=== PATIENT | female | born 1990 | race Hispanic/Latino ===

== ENCOUNTER 2020-11-05 13:32 | Outpatient (CLI) | payer MEDICAID ==
--- NOTE | 2020-11-05 14:19 | ULT ---
TRANSABDOMINAL AND ENDOVAGINAL PELVIC ULTRASOUND: HISTORY: Pelvic pain. COMPARISON: None. TECHNIQUE: Transabdominal and endovaginal imaging of the pelvis is performed. Ovaries are interrogated with wagner scale, color flow, Doppler imaging and spectral wave form analysis. FINDINGS: Uterus: Heterogeneous lesion in the midportion of the uterus measures 0.9 x 1.2 x 1.1 cm. There may b e an associated calcification. Uterus measurin.9 x 5.4 x 8.0 cm. Endometrium: Homogeneous echotexture. Endometrium diameter: 0.6 cm. Nabothian cysts are noted. Free fluid: None. Right ovary: Normal echotexture. Multiple follicles. Right ovary measurement: 2.1 x 2.2 x 3.7 cm. Left ovary: Normal follicles. Largest follicle measures 0.8 x 0.8 x 1.0 cm. Overall normal echotextur e. Left ovary measurements: 3.5 x 2.5 x 1.9 cm. Ovarian Doppler: There is vascular flow to the left and right ovary. IMPRESSION: 1. Bilateral ovarian follicles 2. Soft tissue mass in the midportion of the uterus. Correlate for uterine leiomyoma. Transcribed Date/Time: 11/05/2020 2:26 PM
== END 2020-11-05 13:33 | disposition home or self-care (01) ==
LOC: BICULT 13:32
PROVIDERS: ATTEND Nurse Practitioner Women's Health
DX: R10.2 Pelvic and perineal pain (principal); N85.8 Other specified noninflammatory disorders of uterus
CPT/HCPCS: 76856

== ENCOUNTER 2023-05-16 11:26 | Emergency (ER) | payer OTHER, SELFPAY ==
[2023-05-16 12:20] LABS: #Eosinphils 0.1 thou/uL (0.0-0.7); #Monocytes 0.5 thou/uL (0.11-0.59); #Neutrophils 5.8 thou/uL (1.40-6.50); %Basophils 0.4 % (0.0-1.0); %Eosinophils 1.3 % (0.0-10.0); %Lymphocytes 21.4 % (21.0-51.0); %Monocytes 6.5 % (0.0-10.0); Hemoglobin 7.1 g/dL (12.0-16.0); Mean Corpuscular HGB CONC 26.9 g/dL (32.0-36.0); Mean Corpuscular Hemoglobin 16.5 pg (27.0-31.0); Mean Corpuscular Volume 61.4 fl (78.0-98.0); Platelet Count 304 10x3/uL (130-400); RBC Distribution Width 19.5 % (11.5-14.5); White Blood Cell (WBC) Count 8.3 10x3/uL (4.8-10.8)
[2023-05-16 12:35] LABS: BHCG - Serum Negative (NEGATIVE); Pregs Control Background? CLEAR/WHITE (CLR/WHITE); Pregs Control Bar Appear? YES (CONTROL BAR)
[2023-05-16 12:54] LABS: ALT (SGPT) 12 U/L (8-55); AST (SGOT) 14 U/L (5-34); Albumin 3.9 g/dL (3.5-5.0); Alkaline Phosphatase 56 U/L (40-110); Anion Gap 14 mmol/L (10-20); BUN (Urea Nitrogen) 12 mg/dL (7.0-18.7); Bilirubin, Total 0.3 mg/dL (0.2-1.2); Calc. Creatinine Clearance 0 mL/min (70-130); Calcium 8.9 mg/dL (7.8-10.44); Carbon Dioxide 22 mmol/L (22-29); Chloride 106 mmol/L (98-107); Estimated GFR 118; Glucose 88 mg/dL (70-105); Potassium 3.8 mmol/L (3.5-5.1); Protein, Total 6.9 g/dL (6.0-8.3); Sodium 138 mmol/L (136-145)
[2023-05-16 13:05] LABS: CellaVision Operator ID LAB.KB; Hypochromia MODERATE=16-30 cells HPF (0-5); Microcytosis MODERATE=15-30 cells HPF (0-5); Ovalocytes SLIGHT = 2-5 cells HPF (0-1); Platelet Adequacy Comment Platelets Normal; Polychromasia SLIGHT = 2-3 cells HPF (0-2); Reflex for Review?? YES
== END 2023-05-16 17:30 | disposition home or self-care (01) ==
LOC: ERS 11:26
DX: D50.0 Iron deficiency anemia secondary to blood loss (chronic) (principal); K21.9 Gastro-esophageal reflux disease without esophagitis; Z79.899 Other long term (current) drug therapy
CPT/HCPCS: 36415; 36430; 80053; 84703; 85025; 85060; 86850; 86900; 86901; 93005; P9016

== ENCOUNTER 2023-06-28 08:48 | Outpatient (CLI) | payer MEDICAID | END 2023-06-28 08:49 | disposition home or self-care (01) | LOC: ULT 08:48 | PROVIDERS: ATTEND Nurse Practitioner Women's Health | DX: N92.0 Excessive and frequent menstruation with regular cycle (principal); R93.89 Abnormal findings on diagnostic imaging of other specified body structures; R19.00 Intra-abdominal and pelvic swelling, mass and lump, unspecified site | CPT/HCPCS: 76856 ==

== ENCOUNTER 2024-08-21 09:55 | Day surgery (SDC) | payer SELFPAY ==
[2024-08-21] MEDS: diphenhydrAMINE 25 MG CAP ONE (11:44)
[2024-08-21] MEDS: Acetaminophen 500 MG TAB ONE (11:44)
[2024-08-21] MEDS ORDERED: Acetaminophen 500 MG TAB PO SCH (12:15)
[2024-08-21] MEDS ORDERED: diphenhydrAMINE 25 MG CAP PO SCH (12:15)
[2024-08-21 15:11] VITALS: BP 112/63; TEMP 98.6
== END 2024-08-21 15:03 | disposition home or self-care (01) ==
LOC: ONC/OP 09:55
PROVIDERS: ATTEND Nurse Practitioner Family
DX: D64.9 Anemia, unspecified (principal); D69.6 Thrombocytopenia, unspecified
CPT/HCPCS: 36430; 86850; 86900; 86901; P9016